=== PATIENT | male | born 1985 | race Caucasian/White ===

== ENCOUNTER → 2023-02-24 17:04 | Outpatient (CLI) | payer OTHER, SELFPAY ==
--- NOTE | 2023-02-24 17:07 | DI.MRI.S_ITS ---
PROCEDURE: MR LUMBAR SPINE WO CON INDICATIONS: Radiculopathy, lumbar region TECHNIQUE: Noncontrast sagittal T1 spin echo and T2 fast echo, sagittal STIR, and T2 fast spin echo through the lumbar spine. In cases with scoliosis, additional coronal T2 fast spin echo may be performed. COMPARISON: [facility], CR, XR LUMBAR SPINE 2 OR 3 VIEWS, 02/13/2023, 15:11. FINDINGS: Image quality: Excellent. Alignment and Curvature: There is normal bony alignment. Bone Marrow: Marrow is of normal overall signal. No acute vertebral body compression fractures. Spinal Cord: Conus medullaris terminates at the L1 level. Visualized cord demonstrates normal signal and size. Paraspinous Soft Tissues: No paravertebral masses. T12-L1: Normal appearance. L1-L2: The disc height and disk signal are relatively well-preserved. There is a focal annular fissure seen posteriorly. No significant neural foraminal or central canal narrowing can be seen. L2-L3: The disc height and disk signal are well-preserved. Mild generalized disc bulge is seen. There is a superimposed central/left disc extrusion, with mild superior migration of the disc material, as on series 2, image 11 and on series 5, image 16. Mild central canal narrowing is seen. There is moderate left-sided and mild right-sided neural foraminal narrowing. L3-L4: The disc height and disk signal are well-preserved. Moderate disc bulge is seen, which is eccentric to the right. There is a superimposed central disc protrusion. Mild facet joint hypertrophy is seen. There is moderate to severe bilateral neural foraminal narrowing seen, with an associated a degree of compression seen upon the exiting nerve roots. Moderate central canal narrowing is seen. L4-L5: Mild loss of disc height is seen. Loss of disc signal is seen. There is a remote Schmorl's node seen involving the inferior endplate of L4. Moderate loss of disc height is seen. Loss of disc signal is seen. There is a central subligamentous disc extrusion seen. Moderate facet joint hypertrophy is seen. There is at least moderate left-sided and moderate to severe right-sided neural foraminal narrowing. There is a degree of compression seen upon the exiting nerve roots. Moderate central canal narrowing is seen. L5-S1: The disc height and disk signal are relatively well-preserved. Mild disc bulge is seen, with a central/right disc extrusion, with mild superior migration of the disc material, as on series 2, image 11 and on series 5, image 32. Mild facet joint hypertrophy is seen. Moderate bilateral neural foraminal narrowing is seen. Mild central canal narrowing is seen. 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 Dictated by: Skinny Bueno M.D. on 02/24/2023 at 18:51 Approved by: Skinny Bueno M.D. on 02/24/2023 at 18:54
== END ==
LOC: MRI 17:06
PROVIDERS: Referring Provider Physical Medicine & Rehabilitation Pain Medicine; Visit Provider Physical Medicine & Rehabilitation Pain Medicine
DX: M47.26 Other spondylosis with radiculopathy, lumbar region (principal); M47.27 Other spondylosis with radiculopathy, lumbosacral region; M51.16 Intervertebral disc disorders with radiculopathy, lumbar region; M51.17 Intervertebral disc disorders with radiculopathy, lumbosacral region
CPT/HCPCS: 72148